=== PATIENT | male | born 1985 | race Caucasian/White ===

== ENCOUNTER 2020-08-08 19:21 | Emergency (ER) | payer OTHER ==
[2020-08-08] MEDS ORDERED: HYDROcodone/Acetaminophen 10/325 mg Tablet ONE (19:45)
== END 2020-08-08 20:17 | disposition home or self-care (01) ==
LOC: NAV ERS 19:21
DX: S02.2XXA Fracture of nasal bones, initial encounter for closed fracture (principal); F17.220 Nicotine dependence, chewing tobacco, uncomplicated; W22.8XXA Striking against or struck by other objects, initial encounter
CPT/HCPCS: 12011; 70486

== ENCOUNTER 2023-11-01 18:35 | Emergency (ER) | payer OTHER, SELFPAY ==
[2023-11-01] MEDS ORDERED: Fluorescein Opthalmic Strip ONE (18:57)
[2023-11-01] MEDS ORDERED: Tetracaine 0.5% PF 4 ML BOT ONE (18:57)
== END 2023-11-01 20:18 | disposition home or self-care (01) ==
LOC: NAV ERS 18:35
DX: T15.02XA Foreign body in cornea, left eye, initial encounter (principal); F17.290 Nicotine dependence, other tobacco product, uncomplicated
CPT/HCPCS: 99283